=== PATIENT | male | born 1980 | race Caucasian/White ===

== ENCOUNTER 2016-11-26 01:37 | Emergency (ER) | payer BC, OTHER ==
[~2016-11-26] VITALS: Ht 170.2 cm; Wt 80.0 kg
[2016-11-26 01:57] VITALS: BP 117/68; PULSE 81; RESP 16; TEMP 98.4
--- NOTE | 2016-11-26 01:59 | PD ---
HPI Chief Complaint: Psychiatric Symptoms Time Seen by Provider: 01:59 Travel History International Travel<30 days: No Contact w/Intl Traveler<30days: No Traveled to known affect area: No History of Present Illness HPI 36 year male with history depression presents to the emergency department under Fine act for psychiatric evaluation. Patient states he is visiting from [place]. Him and his got into an argument. He states that he left the hotel and began walking down the street. When police arrived he states he is unsure but thinks he may have said statements that cause concern that he may hurt himself. Patient states he does not want to hurt himself. Denies suicidal homicidal ideations. He reports no acute medical needs at this time. No other symptoms to report. PFSH Past Medical History Depression: Yes Social History Alcohol Use: Yes Tobacco Use: No Allergies-Medications (Allergen,Severity, Reaction): Coded Allergies: No Known Allergies (Unverified , 11/26/16) Reported Meds & Prescriptions Reported Meds & Active Scripts Active No Active Prescriptions or Reported Medications Review of Systems Except as stated in HPI: all other systems reviewed are Neg Physical Exam Narrative GENERAL: Well-nourished male patient, ambulatory no acute distress SKIN: Focused skin assessment warm/dry. HEAD: Atraumatic. Normocephalic. EYES: Pupils equal and round. No scleral icterus. No injection or drainage. ENT: No nasal bleeding or discharge. Mucous membranes pink and moist. NECK: Trachea midline. No JVD. CARDIOVASCULAR: Regular rate and rhythm. No murmur appreciated. RESPIRATORY: No accessory muscle use. Clear to auscultation. Breath sounds equal bilaterally. GASTROINTESTINAL: Abdomen soft, non-tender, nondistended. Hepatic and splenic margins not palpable. MUSCULOSKELETAL: No obvious deformities. No clubbing. No cyanosis. No edema. NEUROLOGICAL: Awake and alert. No obvious cranial nerve deficits. Motor grossly within normal limits. Normal speech. Data Data Last Documented VS Vital Signs Date Time Temp Pulse Resp B/P Pulse Ox O2 Delivery O2 Flow Rate FiO2 11/26/16 04:59 97.7 76 18 124/70 97 Orders Complete Blood Count With Diff (11/26/16 01:46) Basic Metabolic Panel (Bmp) (11/26/16 01:46) Psych Screen (11/26/16 01:46) Drug Screen, Random Urine (11/26/16 01:46) Alcohol (Ethanol) (11/26/16 01:46) Labs Laboratory Tests Test 11/26/16 01:50 White Blood Count 8.0 TH/MM3 Red Blood Count 6.02 MIL/MM3 Hemoglobin 13.0 GM/DL Hematocrit 39.8 % Mean Corpuscular Volume 66.1 FL Mean Corpuscular Hemoglobin 21.6 PG Mean Corpuscular Hemoglobin 32.7 % Concent Red Cell Distribution Width 14.9 % Platelet Count 183 TH/MM3 Mean Platelet Volume 8.8 FL Neutrophils (%) (Auto) 64.7 % Lymphocytes (%) (Auto) 22.6 % Monocytes (%) (Auto) 7.5 % Eosinophils (%) (Auto) 4.3 % Basophils (%) (Auto) 0.9 % Neutrophils # (Auto) 5.2 TH/MM3 Lymphocytes # (Auto) 1.8 TH/MM3 Monocytes # (Auto) 0.6 TH/MM3 Eosinophils # (Auto) 0.3 TH/MM3 Basophils # (Auto) 0.1 TH/MM3 CBC Comment DIFF FINAL Differential Comment Sodium Level 143 MEQ/L Potassium Level 3.5 MEQ/L Chloride Level 109 MEQ/L Carbon Dioxide Level 25.8 MEQ/L Anion Gap 8 MEQ/L Blood Urea Nitrogen 11 MG/DL Creatinine 0.93 MG/DL Estimat Glomerular Filtration 91 ML/MIN Rate Random Glucose 114 MG/DL Calcium Level 8.3 MG/DL Urine Opiates Screen NEG Urine Barbiturates Screen NEG Urine Amphetamines Screen NEG Urine Benzodiazepines Screen NEG Urine Cocaine Screen NEG Urine Cannabinoids Screen NEG Ethyl Alcohol Level 127 MG/DL MDM Medical Decision Making Medical Screen Exam Complete: Yes Emergency Medical Condition: Yes Medical Record Reviewed: Yes Differential Diagnosis Mood disorder versus personality disorder versus adjustment reaction disorder Narrative Course 36-year-old male presents to emergency department under Fine act for psychiatric evaluation. Patient appears without distress. His vital signs are stable. Lab work is without acute concern. Patient is medically cleared to undergo psychiatric screening for further evaluation and disposition. Mental health screening discussed with the patient. Psychiatric screen ordered. Diagnosis Primary Impression: Adjustment reaction Qualified Code: F43.21 - Adjustment disorder with depressed mood Additional Impression: Alcohol intoxication Qualified Code: F10.920 - Alcohol intoxication, uncomplicated Scripts No Active Prescriptions or Reported Meds Condition: Stable Zarina Lomas Nov 26, 2016 01:59
[2016-11-26 02:02] LABS: AUTOMATED NEUTROPHIL # 5.2 TH/MM3 (1.8-7.7); BASOPHIL # 0.1 TH/MM3 (0-0.2); BASOPHIL % 0.9 % (0.0-2.0); EOSINOPHIL # 0.3 TH/MM3 (0-0.4); EOSINOPHIL % 4.3 % (0.0-4.0); HEMATOCRIT 39.8 % (39.0-51.0); HEMO FLAGS DIFF FINAL; LYMPH % 22.6 % (9.0-44.0); LYMPHOCYTE # 1.8 TH/MM3 (1.0-4.8); MEAN CELL VOLUME 66.1 FL (80.0-100.0); MEAN CORPUSCULAR HEMOGLOBIN 21.6 PG (27.0-34.0); MEAN CORPUSCULAR HGB CONC 32.7 % (32.0-36.0); MONO % 7.5 % (0.0-8.0); NEUT % 64.7 % (16.0-70.0); PLATELET COUNT 183 TH/MM3 (150-450); RED BLOOD COUNT 6.02 MIL/MM3 (4.50-5.90); RED CELL DISTRIBUTION WIDTH 14.9 % (11.6-17.2)
[2016-11-26 02:10] LABS: AMPHETAMINE, URINE NEG (NEG); BARBITURATES, URINE NEG (NEG); COCAINE, URINE NEG (NEG)
[2016-11-26 02:24] LABS: BICARBONATE 25.8 MEQ/L (21.0-32.0); POTASSIUM 3.5 MEQ/L (3.5-5.1)
[2016-11-26 04:59] VITALS: BP 124/70; PULSE 76; RESP 18; TEMP 97.7; O2SAT 97
[2016-11-26 06:20] VITALS: BP 104/62; PULSE 88; RESP 18; TEMP 97.4; O2SAT 97
[2016-11-26 10:24] VITALS: BP 104/62; TEMP 97.4
--- NOTE | 2016-11-26 10:28 | PD ---
History of Present Illness Chief Complaint: Psychiatric Symptoms Time Seen by Provider: 09:30 Travel History International Travel<30 Days: No Contact w/Intl Traveler<30days: No Known affected area: No Legal Status Legal Status: Fine Act Fine Act Signed By: Natalee Sandoval History of Present Illness: This is a 36-year-old male who was Fine acted last night [place] [employer] while walking with an open container of alcohol. Patient apparently stated he and his are having a dispute and he was upset because of their marital issues. He was reportedly wanting to be struck by a car. Patient made this statement multiple times and was apparently intoxicated when he made that threat. At the present time, the patient denies being suicidal or homicidal. He denies any psychotic symptoms and his cognition is intact. He and his and 2 children are visiting from [place]. They are currently staying in a motel. Patient is trying to find a job. He does admit to having made these comments last night but now recants any wish to harm himself as well as significant symptoms of depression. In fact, at the hospital he was cooperative although denied being suicidal by walking near traffic. He is verbally francisco j for safety and this physician feels the least restrictive alternative is to lift his [place] act and refer him for outpatient treatment. PFSH Past Medical History Medical History: Denies Significant Hx Depression: Yes Past Surgical History Surgical History: No Previous Surgery Psychiatric History Psychiatric History Hx Psychiatric Treatment: TREATED FOR ANXIETY IN THE PAST History of Inpatient Treatment: No Social History Hx Alcohol Use: Yes Hx Tobacco Use: No Hx Substance Use: Yes Substance Use Type: Alcohol Hx of Substance Use Treatment: No Allergies-Medications (Allergen,Severity, Reaction): Coded Allergies: No Known Allergies (Unverified , 11/26/16) Reported Meds & Prescriptions Reported Meds & Active Scripts Active No Active Prescriptions or Reported Medications Review of Systems Except as stated in HPI: all other systems reviewed are Neg Exam Alert: Yes [place]: Person, Place, Date, Situation Mood: Calm Affect: Appropriate Speech: Clear, Logical Eye Contact: Normal Memory Intact: Immediate, Recent, Remote Insight/Judgement Adequate MDM Medical Decision Making Medical Record Reviewed: Yes Assessment/Plan 36-year-old male with financial stressors, a family to support and a recent history of alcohol intoxication accompanied by suicidal threats. At this time the patient is no longer intoxicated and he is denying suicidality. He does admit to some depression and financial stress. He is verbally francisco j for safety. His cognition is intact. This physician feels least restrictive alternative requires his Fine act to be lifted and the patient may be treated on an outpatient basis, both for his alcohol abuse and for his depressive complaints. He was encouraged strongly to stop drinking alcohol at this time. Orders Complete Blood Count With Diff (11/26/16 01:46) Basic Metabolic Panel (Bmp) (11/26/16 01:46) Psych Screen (11/26/16 01:46) Drug Screen, Random Urine (11/26/16 01:46) Alcohol (Ethanol) (11/26/16 01:46) Diet Regular Basic (11/26/16 Breakfast) Results Vital Signs Date Time Temp Pulse Resp B/P Pulse Ox O2 Delivery O2 Flow Rate FiO2 11/26/16 06:20 97.4 88 18 104/62 97 11/26/16 04:59 97.7 76 18 124/70 97 11/26/16 01:57 98.4 81 16 117/68 Laboratory Tests Test 11/26/16 01:50 White Blood Count 8.0 Red Blood Count 6.02 Hemoglobin 13.0 Hematocrit 39.8 Mean Corpuscular Volume 66.1 Mean Corpuscular Hemoglobin 21.6 Mean Corpuscular Hemoglobin 32.7 Concent Red Cell Distribution Width 14.9 Platelet Count 183 Mean Platelet Volume 8.8 Neutrophils (%) (Auto) 64.7 Lymphocytes (%) (Auto) 22.6 Monocytes (%) (Auto) 7.5 Eosinophils (%) (Auto) 4.3 Basophils (%) (Auto) 0.9 Neutrophils # (Auto) 5.2 Lymphocytes # (Auto) 1.8 Monocytes # (Auto) 0.6 Eosinophils # (Auto) 0.3 Basophils # (Auto) 0.1 CBC Comment DIFF FINAL Differential Comment Sodium Level 143 Potassium Level 3.5 Chloride Level 109 Carbon Dioxide Level 25.8 Anion Gap 8 Blood Urea Nitrogen 11 Creatinine 0.93 Estimat Glomerular Filtration 91 Rate Random Glucose 114 Calcium Level 8.3 Urine Opiates Screen NEG Urine Barbiturates Screen NEG Urine Amphetamines Screen NEG Urine Benzodiazepines Screen NEG Urine Cocaine Screen NEG Urine Cannabinoids Screen NEG Ethyl Alcohol Level 127 Diagnosis Primary Impression: Alcohol abuse Additional Impression: Adjustment disorder with mixed disturbance of emotions and conduct Prescriptions No Active Prescriptions or Reported Meds Condition: Stable Problem Qualifiers Michael Knapp MD Nov 26, 2016 10:28
== END 2016-11-26 10:38 | disposition home or self-care (01) ==
LOC: NEPD 01:37 → NEPJ 10:38
DX: F43.25 Adjustment disorder with mixed disturbance of emotions and conduct (principal); F10.120 Alcohol abuse with intoxication, uncomplicated; Y90.6 Blood alcohol level of 120-199 mg/100 ml
CPT/HCPCS: 80048; 80307; 85025; 99283